=== PATIENT | male | born 1960 | race Caucasian/White ===

== ENCOUNTER 2022-12-04 18:15 | Emergency (ER) | payer SELFPAY ==
[2022-12-04] MEDS ORDERED: Ketorolac Tromethamine 30 MG/ML VIAL ONE (20:43)
[2022-12-04] MEDS ORDERED: methylPREDNISolone Sod Succ/PF 125 MG/2 ML VIAL ONE (20:43)
[2022-12-04] MEDS ORDERED: Cyclobenzaprine 10 MG TAB ONE (20:44)
== END 2022-12-04 22:53 | disposition home or self-care (01) ==
LOC: CSHERS 18:15
DX: S33.5XXA Sprain of ligaments of lumbar spine, initial encounter (principal); M54.41 Lumbago with sciatica, right side
CPT/HCPCS: 96374; 96375; J1885; J2930